=== PATIENT | female | born 1950 | race Asian ===

== ENCOUNTER 2018-04-05 10:35 | Emergency (ER) | payer OTHER ==
[2018-04-05 11:23] VITALS: BMI 21.2
[2018-04-05] MEDS ORDERED: SODIUM CHLORIDE 1,000 ML IV STA (12:03)
[2018-04-05] MEDS ORDERED: MECLIZINE HCL 25 MG TABLET (FP) PO ONE (12:04)
[2018-04-05] MEDS ORDERED: MECLIZINE HCL 25 MG TABLET (FP) ONE (12:12)
[2018-04-05 12:34] LABS: BASO % 0.2 % (0-2.0); EOS % 0.9 % (0-4.5); HEMATOCRIT 39.8 % (32.4-45.2); HEMOGLOBIN 14.2 GM/dL (10.7-15.3); LYMPH % 22.7 % (8-40); MCHC 35.6 g/dl (32.0-36.0); MEAN PLT VOLUME 6.9 fl (7.5-11.1); MONO % 6.4 % (3.8-10.2); NEUT % 69.8 % (42.8-82.8); PLATELET COUNT 269 K/MM3 (134-434); RBC 4.57 M/mm3 (3.60-5.2); RDW 13.7 % (11.6-15.6); WHITE BLOOD COUNT 8.3 K/mm3 (4.0-10.0)
[2018-04-05 12:38] LABS: URINE APPEARANCE CLEAR; URINE BILIRUBIN NEGATIVE (<2.0 mg/dL); URINE COLOR STRAW; URINE GLUCOSE (UA) NEGATIVE (NEGATIVE); URINE KETONE NEGATIVE (NEGATIVE); URINE LEUK ESTERASE NEGATIVE (NEGATIVE); URINE NITRITE NEGATIVE (NEGATIVE); URINE PROTEIN NEGATIVE (NEGATIVE); URINE UROBILINOGEN NEGATIVE mg/dL (0.2-1.0)
--- NOTE | 2018-04-05 12:49 | PDOC ---
History of Present Illness - General Chief Complaint: Nausea Stated Complaint: Nausea/Vomiting Time Seen by Provider: 04/05/18 10:57 - History of Present Illness Initial Comments: 04/05/18 12:43 The patient is a 67-year-old female with a past medical history significant for HLD presents to the emergency department via EMS accompanied by with generalized weakness, dizziness, nausea and a headache. The patient states she woke up today with nausea, headache, room spinning dizziness and generalized weakness, associated with the sensation of eyes and nose burning. Pt reports she came close to vomiting a few times but has not. The patient states she tried several times to ambulate from the bedroom to the kitchen but was unable to secondary to dizziness and nausea, denies falls. SHe reports her headace is mild, located globally, and come on gradually this morning. Reports chun has resolved in the ED. She also reports mild, pinching, L. sided chest pain, with no radiation or associated diaphoresis, SOB. The patient reports a similar incident of dizziness about 2 years ago, which self-resolved. The patient reports she was fine yesterday, states she was cooking all day for her daughter who is visiting and went to work in the afternoon. The patient reports last week she had the flu, was treated with abx. The reports they returned from [facility] last month from a 2-month vacation. Denies dysuria, or urinary symptoms, leg pain or swelling. Medication: pantoprazole, nexium (for 15 years) Allergies: NKDA Social history: NOne reported PCP: Dr. Ana María Rosenthal. Past History - Past Medical History Allergies/Adverse Reactions: Allergies Allergy/AdvReac Type Severity Reaction Status Date / Time No Known Allergies Allergy Verified 04/05/18 11:23 Home Medications: Ambulatory Orders Atorvastatin Ca [Lipitor] 10 mg PO HS 04/05/18 Omeprazole 40 mg PO DAILY 04/05/18 COPD: No GI Disorders: Yes (gerd) Hypercholesterolemia: Yes - Suicide/Smoking/Psychosocial Hx Smoking History: Never smoked Have you smoked in the past 12 months: No Information on smoking cessation initiated: No Hx Alcohol Use: No Drug/Substance Use Hx: No Review of Systems - Review of Systems Comments:: 04/05/18 12:46 GENERAL/CONSTITUTIONAL: No fever or chills. +weakness. HEAD, EYES, EARS, NOSE AND THROAT:+burning sensation to the eyes and nose. No change in vision. No ear pain or discharge. No sore throat. GASTROINTESTINAL: +nausea .No vomiting, diarrhea or constipation. GENITOURINARY: No dysuria, frequency, or change in urination. CARDIOVASCULAR: +Mild left sided chest pain. No shortness of breath. RESPIRATORY: No cough, wheezing, or hemoptysis. MUSCULOSKELETAL: No joint or muscle swelling or pain. No neck or back pain. SKIN: No rash NEUROLOGIC: +headache and dizziness. No vertigo, loss of consciousness, or change in strength/sensation. ENDOCRINE: No increased thirst. No abnormal weight change. HEMATOLOGIC/LYMPHATIC: No anemia, easy bleeding, or history of blood clots. ALLERGIC/IMMUNOLOGIC: No hives or skin allergy. *Physical Exam - Vital Signs Last Vital Signs Temp Pulse Resp BP Pulse Ox 98.4 F 72 16 141/79 100 04/05/18 10:40 04/05/18 10:40 04/05/18 10:40 04/05/18 10:40 04/05/18 10:40 - Physical Exam Comments: 04/05/18 12:47 GENERAL: Awake, alert, and fully oriented, in no acute distress. Appears uncomfortable EYES: PERRLA, EOMI, sclera anicteric, conjunctiva clear. No nystagmus. ENT: +dry mucosa. NECK: Normal ROM, supple, no lymphadenopathy, JVD, or masses LUNGS: Breath sounds equal, clear to auscultation bilaterally. No wheezes, and no crackles HEART: Regular rate and rhythm, normal S1 and S2, no murmurs, rubs or gallops ABDOMEN: Soft, nontender, normoactive bowel sounds. No guarding, no rebound. No masses EXTREMITIES: Normal range of motion, no edema. No erythema or tenderness BACK: No midline spinal tenderness in cervical/thoracic/lumbar region NEUROLOGICAL: +room spinning sensation with eyes closed. Normal speech, cranial nerves intact, negative pronator drift, 5/5 strength in all 4 extremities, normal sensation to light touch in all 4 extremities, normal cerebellar exam, normal gait, normal reflexes and tone SKIN: Warm, Dry, normal turgor, no rashes or lesions noted. Moderate Sedation - Procedure Monitoring Vital Signs: Procedure Monitoring Vital Signs Temperature 98.4 F 04/05/18 10:40 Pulse Rate 72 04/05/18 10:40 Respiratory Rate 16 04/05/18 10:40 Blood Pressure 141/79 04/05/18 10:40 O2 Sat by Pulse Oximetry (%) 100 04/05/18 10:40 Heart Score/ECG Review #1 04/05/18 19:47 Twelve-lead EKG was performed and reviewed by me. Twelve-lead EKG was performed and reviewed by me. Normal sinus rhythm, rate 75. Normal axis and intervals. No ST elevations. ED Treatment Course - LABORATORY CBC & Chemistry Diagram: 04/05/18 12:20 04/05/18 12:08 - ADDITIONAL ORDERS Additional order review: Laboratory Results 04/05/18 12:08 Urine Color Straw Urine Appearance Clear Urine pH 8.0 Ur Specific [place] 1.006 L Urine Protein Negative Urine Glucose (UA) Negative Urine Ketones Negative Urine Blood Negative Urine Nitrite Negative Urine Bilirubin Negative Urine Urobilinogen Negative Ur Leukocyte Esterase Negative 04/05/18 12:20 RBC 4.57 MCV 87.0 MCHC 35.6 RDW 13.7 MPV 6.9 L Neutrophils % 69.8 Lymphocytes % 22.7 Monocytes % 6.4 Eosinophils % 0.9 Basophils % 0.2 - RADIOLOGY Radiology Studies Ordered: Category Date Time Status HEAD CT WITHOUT CONTRAST [CT] Stat CT Scan 04/05/18 12:05 Ordered CHEST X-RAY PORTABLE* [RAD] Stat Radiology 04/05/18 12:03 Ordered - Medications Given in the ED: ED Medications Discontinued Medications Generic Name Dose Route Start Last Admin Trade Name Freq PRN Reason Stop Dose Admin Meclizine HCl 25 mg 04/05/18 12:04 04/05/18 12:28 Antivert - PO 04/05/18 12:05 25 mg ONCE ONE Administration Medical Decision Making - Medical Decision Making 04/05/18 12:49 67yo F hx HL presents to the ED with multiple compliants including room spinning dizziness a/w nausea, headache as well as CP. Vitals wnl. Exam with positional vertigo, but pt is neurologically intact. Likely peripheral vertigo, especially in light of recent viral illness. Central vertigo is less likely as pt is neuro intact with no headache at this time, normal BP. Plan to check CTH , labs, treat with meclizine. With regards to CP, lasts for seconds at a time and is "pinching" per pt. Plan to check trop x2. EKG is non ischemic. 04/05/18 17:12 Trop neg x 2 Labs, UA unremarkable CTH neg for acute path Pt reports complete resolution of all symptoms including dizziness, cp, requesting to eat and be discharged Pt ambulating in ED, comfortable, well appearing Likely peripheral vertigo, atypical cp Pt to f/u with her PMD within 1-2 days I discussed the physical exam findings, ancillary test results and final diagnoses with the patient. I answered all of the patient's questions. The patient was satisfied with the care received and felt comfortable with the discharge plan and treatment plan. The patient will call their primary care physician within 24 hours to arrange follow-up and will return to the Emergency Department with any new, persistent or worsening symptoms. *DC/Admit/Observation/Transfer Diagnosis at time of Disposition: Dizziness, Chest pain, Nausea - Discharge Dispostion Disposition: HOME Condition at time of disposition: Stable Decision to Admit order: No - Referrals Referrals: Ana María Rosenthal MD [Primary Care Provider] - - Patient Instructions Printed Discharge Instructions: DI for Vertigo, DI for Chest Pain Additional Instructions: Follow up with Dr. Galo Gotti within 1-2 days Return to the emergency department immediately if you have any new, worsening, or concerning symptoms - Post Discharge Activity Forms/Work/School Notes: Back to Work - Attestations Physician Attestion: 04/05/18 17:16 I, Dr. Pola Teague MD, attest that this document has been prepared under my direction and personally reviewed by me in its entirety. I further attest, that it accurately reflects all work, treatment, procedures and medical decision -making performed by me.
[2018-04-05 12:50] LABS: ALBUMIN 3.9 g/dl (3.4-5.0); ALK PHOS 103 U/L (45-117); ANION GAP 5 MMOL/L (8-16); BILIRUBIN,TOTAL 0.7 mg/dL (0.2-1); BLOOD UREA NITROGEN 12 mg/dL (7-18); CALCIUM 8.6 mg/dL (8.5-10.1); CHLORIDE 103 mmol/L (98-107); CO2 25 mmol/L (21-32); CREATININE 0.7 mg/dL (0.55-1.3); GLUCOSE,RANDOM 118 mg/dL (74-106); POTASSIUM 3.9 mmol/L (3.5-5.1); SGOT/AST 16 U/L (15-37); SGPT/ALT 24 U/L (13-61); SODIUM 134 mmol/L (136-145); TOT PROT 7.3 g/dl (6.4-8.2)
--- NOTE | 2018-04-05 15:04 | EKG ---
Test Reason : Blood Pressure : / mmHG Vent. Rate : 075 BPM Atrial Rate : 075 BPM P-R Int : 146 ms QRS Dur : 068 ms QT Int : 394 ms P-R-T Axes : 092 004 049 degrees QTc Int : 439 ms POOR DATA QUALITY, INTERPRETATION MAY BE ADVERSELY AFFECTED NORMAL SINUS RHYTHM NORMAL ECG WHEN COMPARED WITH ECG OF 10-APR-2000 15:22, QT HAS LENGTHENED Confirmed by ANSHUL CHIRINOS, MADELYN ([id number]) on 04/05/2018 3:03:40 PM Referred By: Confirmed By:MADELYN LANDERS MD
[2018-04-05 17:58] VITALS: BP 136/92; PULSE 96; TEMP 98.2
== END 2018-04-05 18:30 | disposition home or self-care (01) ==
LOC: JER 10:35
PROC: 3E0337Z Introduction of Electrolytic and Water Balance Substance into Peripheral Vein, Percutaneous Approach (ICD-10-PCS; principal; 2018-04-05)
DX: R07.9 Chest pain, unspecified (principal); R51 Headache; R11.2 Nausea with vomiting, unspecified; R42 Dizziness and giddiness
CPT/HCPCS: 36415; 70450-TC; 71045-TC-FY; 80053; 81003; 84484; 85025; 87086; 93005; 93010; 99283-25; J7030